=== PATIENT | female | born 1985 | race African-American/Black ===

== ENCOUNTER → 2017-08-11 | Outpatient (CLI) | payer MEDICARE, OTHER ==
[2016-08-04 15:00] VITALS: BP 130/61
[~2017-08-11] MED LIST: NAPR500T8 PO
--- NOTE | 2017-08-11 12:36 | RAD ---
Obstetrical ultrasound, 08/11/2017: History: Check size and dates Transabdominal scans were obtained. There is a single intrauterine fetus in a variable orientation. The biparietal diameter measures 3.9 cm compatible with a gestational age of nearly 18 weeks. This corresponds well to the other measurements and yields an average gestational age of 18 weeks and 0 days and a sonographic EDC of 01/12/2018. Normal activity and heart motion were seen. There is a four-chamber heart with a heart rate of 150 bpm. The stomach, bladder and kidneys were visualized. The spine and cord insertion were unremarkable. A three-vessel umbilical cord is evident. No specific abnormality is detected. A normal amount of amniotic fluid is present. The placenta lies anteriorly with no evidence of a placenta previa. Cervical length is approximately 3.3 cm. IMPRESSION: Single viable intrauterine fetus of 18 weeks gestational age as described above.
== END | disposition home or self-care (01) ==
LOC: US 10:36
PROVIDERS: ATTEND Obstetrics & Gynecology
DX: Z34.92 Encounter for supervision of normal pregnancy, unspecified, second trimester (principal); Z3A.18 18 weeks gestation of pregnancy; F17.200 Nicotine dependence, unspecified, uncomplicated
CPT/HCPCS: 76805